=== PATIENT | male | born 1985 | race Caucasian/White ===

== ENCOUNTER 2017-01-03 07:55 | Emergency (ER) | payer OTHER ==
[2017-01-03] MEDS ORDERED: Sodium Chloride 0.9% 1,000 ML IV ONE (08:11)
[2017-01-03] MEDS ORDERED: Ketorolac 30 MG/ML SDV IVPUSH ONE (08:11)
[2017-01-03] MEDS ORDERED: Sodium Chloride 0.9% 2.5 ML Syringe FLUSH PRN (08:11)
[2017-01-03] MEDS ORDERED: methylPREDNISolone Sodium Succinate 125 MG/2 ML SDV IVPUSH ONE (08:11)
[2017-01-03] MEDS ORDERED: Sodium Chloride 0.9% 10 ML Syringe FLUSH PRN (08:11)
[2017-01-03] MEDS ORDERED: Albuterol/Ipratropium 3.0-0.5 MG/3 ML Neb Soln NEB ONE (08:11)
[2017-01-03] MEDS ORDERED: Albuterol/Ipratropium 3.0-0.5 MG/3 ML Neb Soln ONE (08:12)
--- NOTE | 2017-01-03 08:15 | EDM.PDOC ---
ED HPI GENERAL MEDICAL PROBLEM - General Chief Complaint: Respiratory Problem Stated Complaint: TROUBLE BREATHING Time Seen by Provider: 01/03/17 08:03 - History of Present Illness INITIAL COMMENTS - FREE TEXT/NARRATIVE: HISTORY AND PHYSICAL: History of present illness: Patient is a 31-year-old male with no stated medical problems who follows with Dr. [facility] in [facility] who presents with complaints of onset of shortness of breath that started last evening and has been continuing throughout the last 9 or 10 hours. According to the patient he works in the [employer] and went into work about 7 PM and felt perfectly normal. As he was working he noticed gradual onset of shortness of breath and chest tightness with breathing more on the right side. There is nothing new or different about his work last evening. He said he got progressively worse as the evening progressed and it seemed better when he rested. He had a dry hacking cough and at one point coughed so hard that he had vomiting. Is no vomiting since that time and has no abdominal pain. He's had no fever chills back pain urinary complaints or diarrhea. He's had a slight runny nose no sinus pressure or congestion. Patient has no leg pain or swelling and says there is nothing new or different about the work that he was doing last evening that any prior days this week. In the ER he says he feels better at rest but he still feels like he has tightness when he is trying to get air and he is not getting enough air. Patient is not a smoker which tobacco. Review of systems: As per history of present illness and below otherwise all systems reviewed and negative. Past medical history: As per history of present illness and as reviewed below otherwise noncontributory. Surgical history: As per history of present illness and as reviewed below otherwise noncontributory. Social history: No reported history of drug or alcohol abuse. Family history: As per history of present illness and as reviewed below otherwise noncontributory. Physical exam: Gen.: Well-developed well-nourished man who is nontoxic and speaks clearly and easily in the ED. He is not breathless and vital signs of the note by me HEENT: Atraumatic, normocephalic, pupils reactive, negative for conjunctival pallor or scleral icterus, mucous membranes moist, throat clear, neck supple, nontender, trachea midline. Lungs: Clear to auscultation with scattered expiratory and inspiratory wheezing on the right which clears with cough, no work of breathing or stridor, breath sounds equal bilaterally, chest nontender. Heart: S1S2, regular, negative for clicks, rubs, or JVD. Abdomen: Soft, nondistended, nontender. Negative for masses or hepatosplenomegaly. NABS Pelvis: Stable nontender. Genitourinary: Deferred. Rectal: Deferred. Extremities: Atraumatic, negative for cords or calf pain. Neurovascular unremarkable. No pedal edema or leg asymmetry Neuro: Awake, alert, oriented. Cranial nerves II through XII unremarkable. Cerebellum unremarkable. Motor and sensory unremarkable throughout. Exam nonfocal. Diagnostics: EKG chest x-ray CBC CMP INR and d-dimer lactic acid troponin Therapeutics: IV O2 monitor IV fluids Solu-Medrol duo neb Toradol I discussed with the patient all testing results as well as with his significant other at bedside. Patient states he feels significantly improved after the DuoNeb and on my examination he has no wheezing and no work of breathing. His sats have always been good. I discussed with him and offered admission to the hospital for both he and I feel comfortable with discharge home with an inhaler and steroids and close follow-up in our clinic. I advised him on reasons to return to the ER Impression: Acute dyspnea, bronchospasm/acute bronchitis Definitive disposition and diagnosis as appropriate pending reevaluation and review of above. - Related Data Allergies Allergy/AdvReac Type Severity Reaction Status Date / Time No Known Allergies Allergy Verified 08/06/15 19:29 Home Meds: Home Meds . [No Known Home Meds] 08/06/15 [History] Past Medical History - Past Health History Medical/Surgical History: Denies Medical/Surgical History HEENT History: Reports: None Cardiovascular History: Reports: None Respiratory History: Reports: None Gastrointestinal History: Reports: None Genitourinary History: Reports: None Musculoskeletal History: Reports: None Neurological History: Reports: None Psychiatric History: Reports: None Endocrine/Metabolic History: Reports: None Hematologic History: Reports: None Immunologic History: Reports: None Oncologic (Cancer) History: Reports: None Dermatologic History: Reports: None - Past Surgical History Head Surgeries/Procedures: Reports: None HEENT Surgical History: Reports: None Cardiovascular Surgical History: Reports: None Respiratory Surgical History: Reports: None GI Surgical History: Reports: None Endocrine Surgical History: Reports: None Neurological Surgical History: Reports: None Musculoskeletal Surgical History: Reports: Other (See Below) Social & Family History - Tobacco Use Smoking Status *Q: Never Smoker - Caffeine Use Caffeine Use: Reports: Energy Drinks, Soda - Recreational Drug Use Recreational Drug Use: No ED ROS GENERAL - Review of Systems Review Of Systems: ROS reveals no pertinent complaints other than HPI. ED EXAM, GENERAL - Physical Exam Exam: See Below (See dictation) Course - Vital Signs Last Recorded V/S: Last Vital Signs Temp 36.3 C 01/03/17 08:00 Pulse 67 01/03/17 09:00 Resp 16 01/03/17 09:00 BP 106/65 01/03/17 09:00 Pulse Ox 97 01/03/17 09:00 - Orders/Labs/Meds Orders: Active Orders 24 hr Category Date Time Status Cardiac Monitoring [RC] . DIRECTED Care 01/03/17 08:10 Active Communication Order [RC] STAT Care 01/03/17 09:48 Ordered EKG Documentation Completion [RC] STAT Care 01/03/17 08:10 Active Oxygen Therapy, ED [RC] ASDIRECTED Care 01/03/17 08:10 Active Pulse Oximetry [RC] ASDIRECTED Care 01/03/17 08:10 Active RT Aerosol Therapy [RC] ASDIRECTED Care 01/03/17 08:11 Active Sodium Chloride 0.9% [Saline Flush] Med 01/03/17 08:11 Active 10 ml FLUSH ASDIRECTED PRN Sodium Chloride 0.9% [Saline Flush] Med 01/03/17 08:11 Active 2.5 ml FLUSH ASDIRECTED PRN Saline Lock Insert [OM.PC] Stat Oth 01/03/17 08:10 Ordered Medication Orders Sodium Chloride (Saline Flush) 10 ml FLUSH ASDIRECTED PRN PRN Reason: Keep Vein Open Last Admin: 01/03/17 08:19 Dose: 10 ml Sodium Chloride (Saline Flush) 2.5 ml FLUSH ASDIRECTED PRN PRN Reason: Keep Vein Open Last Admin: 01/03/17 08:24 Dose: 2.5 ml Labs: Laboratory Tests 01/03/17 01/03/17 01/03/17 Range/Units 08:15 08:15 08:15 WBC 8.99 (4.0-11.0) K/uL RBC 4.90 (4.50-5.90) M/uL Hgb 15.1 (13.0-17.0) g/dL Hct 43.0 (38.0-50.0) % MCV 87.8 (80.0-98.0) fL MCH 30.8 (27.0-32.0) pg MCHC 35.1 (31.0-37.0) g/dL RDW Std Deviation 37.9 (28.0-62.0) fl RDW Coeff of Fatoumata 12 (11.0-15.0) % Plt Count 235 (150-400) K/uL MPV 9.00 (7.40-12.00) fL Neut % (Auto) 63.6 (48.0-80.0) % Lymph % (Auto) 22.5 (16.0-40.0) % Wells % (Auto) 9.6 (0.0-15.0) % Eos % (Auto) 3.9 (0.0-7.0) % Baso % (Auto) 0.4 (0.0-1.5) % Neut # (Auto) 5.7 (1.4-5.7) K/uL Lymph # (Auto) 2.0 (0.6-2.4) K/uL Wells # (Auto) 0.9 H (0.0-0.8) K/uL Eos # (Auto) 0.4 (0.0-0.7) K/uL Baso # (Auto) 0.0 (0.0-0.1) K/uL Nucleated RBC % 0.0 /100WBC Nucleated RBCs # 0 K/uL INR 0.99 (0.86-1.11) D-Dimer, Quantitative 0.22 (0.0-0.52) mg/LFEU Lactate 0.7 (0.20-2.00) mmol/L Sodium (136-146) mmol/L Potassium (3.5-5.1) mmol/L Chloride (98-110) mmol/L Carbon Dioxide (21-31) mmol/L BUN (6.0-23.0) mg/dL Creatinine (0.6-1.5) mg/dL Est Cr Clr Drug Dosing mL/min Estimated GFR (MDRD) ml/min Glucose (60-110) mg/dL Calcium (8.8-10.8) mg/dL Total Bilirubin (0.1-1.5) mg/dL AST (5-40) IU/L ALT (8-54) IU/L Alkaline Phosphatase (40-150) Troponin I (0.0-0.29) NG/ML Total Protein (6.0-8.0) g/dL Albumin (3.5-5.0) g/dL Globulin (2.0-3.5) g/dL Albumin/Globulin Ratio (1.3-2.8) 01/03/17 Range/Units 08:15 WBC (4.0-11.0) K/uL RBC (4.50-5.90) M/uL Hgb (13.0-17.0) g/dL Hct (38.0-50.0) % MCV (80.0-98.0) fL MCH (27.0-32.0) pg MCHC (31.0-37.0) g/dL RDW Std Deviation (28.0-62.0) fl RDW Coeff of Fatoumata (11.0-15.0) % Plt Count (150-400) K/uL MPV (7.40-12.00) fL Neut % (Auto) (48.0-80.0) % Lymph % (Auto) (16.0-40.0) % Wells % (Auto) (0.0-15.0) % Eos % (Auto) (0.0-7.0) % Baso % (Auto) (0.0-1.5) % Neut # (Auto) (1.4-5.7) K/uL Lymph # (Auto) (0.6-2.4) K/uL Wells # (Auto) (0.0-0.8) K/uL Eos # (Auto) (0.0-0.7) K/uL Baso # (Auto) (0.0-0.1) K/uL Nucleated RBC % /100WBC Nucleated RBCs # K/uL INR (0.86-1.11) D-Dimer, Quantitative (0.0-0.52) mg/LFEU Lactate (0.20-2.00) mmol/L Sodium 139 (136-146) mmol/L Potassium 4.1 (3.5-5.1) mmol/L Chloride 107 (98-110) mmol/L Carbon Dioxide 24 (21-31) mmol/L BUN 16 (6.0-23.0) mg/dL Creatinine 0.9 (0.6-1.5) mg/dL Est Cr Clr Drug Dosing 128.14 mL/min Estimated GFR (MDRD) > 60.0 ml/min Glucose 101 (60-110) mg/dL Calcium 9.7 (8.8-10.8) mg/dL Total Bilirubin 0.4 (0.1-1.5) mg/dL AST 22 (5-40) IU/L ALT 23 (8-54) IU/L Alkaline Phosphatase 111 (40-150) Troponin I < 0.10 (0.0-0.29) NG/ML Total Protein 7.3 (6.0-8.0) g/dL Albumin 4.3 (3.5-5.0) g/dL Globulin 3.0 (2.0-3.5) g/dL Albumin/Globulin Ratio 1.4 (1.3-2.8) Meds: Medications Generic Name Dose Route Start Last Admin Trade Name Freq PRN Reason Stop Dose Admin Sodium Chloride 10 ml 01/03/17 08:11 01/03/17 08:19 Saline Flush FLUSH 10 ml ASDIRECTED PRN Administration Keep Vein Open Sodium Chloride 2.5 ml 01/03/17 08:11 01/03/17 08:24 Saline Flush FLUSH 2.5 ml ASDIRECTED PRN Administration Keep Vein Open Discontinued Medications Generic Name Dose Route Start Last Admin Trade Name Freq PRN Reason Stop Dose Admin Albuterol/Ipratropium 3 ml 01/03/17 08:11 01/03/17 08:14 Duoneb 3.0-0.5 Mg/3 Ml NEB 01/03/17 08:12 3 ml ONETIME ONE Administration Albuterol/Ipratropium Confirm 01/03/17 08:12 Duoneb 3.0-0.5 Mg/3 Ml Administered 01/03/17 08:13 Dose 3 ml .ROUTE .STK-MED ONE Sodium Chloride 1,000 mls @ 999 mls/hr 01/03/17 08:11 01/03/17 08:20 Normal Saline IV 01/03/17 09:11 999 mls/hr STAT ONE Administration Ketorolac Tromethamine 30 mg 01/03/17 08:11 01/03/17 08:19 Toradol IVPUSH 01/03/17 08:12 30 mg ONETIME ONE Administration Methylprednisolone Sodium Succinate 125 mg 01/03/17 08:11 01/03/17 08:19 Solu-Medrol IVPUSH 01/03/17 08:12 125 mg ONETIME ONE Administration Departure - Departure Time of Disposition: 09:49 Disposition: Home, Self-Care 01 Condition: Good Clinical Impression: Bronchospasm, acute Acute bronchitis Qualifiers: Bronchitis organism: unspecified organism Qualified Code(s): J20.9 - Acute bronchitis, unspecified - Discharge Information Referrals: Alejandro Jones MD [Primary Care Provider] - Forms: ED Department Discharge Additional Instructions: The following information is given to patients seen in the emergency department who are being discharged to home. This information is to outline your options for follow-up care. We provide all patients seen in our emergency department with a follow-up referral. The need for follow-up, as well as the timing and circumstances, are variable depending upon the specifics of your emergency department visit. If you don't have a primary care physician on staff, we will provide you with a referral. We always advise you to contact your personal physician following an emergency department visit to inform them of the circumstance of the visit and for follow-up with them and/or the need for any referrals to a consulting specialist. The emergency department will also refer you to a specialist when appropriate. This referral assures that you have the opportunity for followup care with a specialist. All of these measure are taken in an effort to provide you with optimal care, which includes your followup. Under all circumstances we always encourage you to contact your private physician who remains a resource for coordinating your care. When calling for followup care, please make the office aware that this follow-up is from your recent emergency room visit. If for any reason you are refused follow-up, please contact the [facility] emergency department at and ask to speak to the emergency department charge nurse. [facility]- [facility] Family [address] [address] Please contact the clinic and get follow-up this week with Dr. Jones or one of the other providers for reevaluation and further care. Use her inhaler as directed with the spacer you have been given every 6 hours for 2 days then every 6 hours as needed. Take prednisone. Please try to reduce exposures at work and push hydration. Return to ER as needed and as discussed - My Orders Last 24 Hours: My Active Orders 01/03/17 08:10 Cardiac Monitoring [RC] . DIRECTED EKG Documentation Completion [RC] STAT Oxygen Therapy, ED [RC] ASDIRECTED Pulse Oximetry [RC] ASDIRECTED Saline Lock Insert [OM.PC] Stat 01/03/17 08:11 RT Aerosol Therapy [RC] ASDIRECTED Sodium Chloride 0.9% [Saline Flush] 10 ml FLUSH ASDIRECTED PRN Sodium Chloride 0.9% [Saline Flush] 2.5 ml FLUSH ASDIRECTED PRN 01/03/17 09:48 Communication Order [RC] STAT - Assessment/Plan Last 24 Hours: My Active Orders 01/03/17 08:10 Cardiac Monitoring [RC] . DIRECTED EKG Documentation Completion [RC] STAT Oxygen Therapy, ED [RC] ASDIRECTED Pulse Oximetry [RC] ASDIRECTED Saline Lock Insert [OM.PC] Stat 01/03/17 08:11 RT Aerosol Therapy [RC] ASDIRECTED Sodium Chloride 0.9% [Saline Flush] 10 ml FLUSH ASDIRECTED PRN Sodium Chloride 0.9% [Saline Flush] 2.5 ml FLUSH ASDIRECTED PRN 01/03/17 09:48 Communication Order [RC] STAT
[2017-01-03 08:51] LABS: CHLORIDE,CL 107 mmol/L (98-110); SODIUM,NA 139 mmol/L (136-146)
--- NOTE | 2017-01-03 09:06 | CR ---
EXAMINATION: Two-view chest (PA and Lateral views). HISTORY: Shortness of breath. FINDINGS: The trachea is midline. The cardiomediastinal silhouette is within normal limits. No pulmonary infilt rates, effusions or pneumothorax. Osseous structures appear unremarkable. IMPRESSION: No acute cardiopulmonary process.
[2017-01-03 10:22] VITALS: BP 106/63
== END 2017-01-03 10:22 | disposition home or self-care (01) ==
LOC: MW.ED 07:55
DX: J20.9 Acute bronchitis, unspecified (principal)
CPT/HCPCS: 71020; 80053; 83605; 84484; 85025; 85379; 85610; 93005; 94640; 96361; 96374; 96375; 99285; J1885; J2930; J7040; 99284